=== PATIENT | female | born 1990 | race Two or more races ===

== ENCOUNTER 2021-12-17 08:35 | Inpatient (IN) | payer OTHER ==
[~2021-12-17] VITALS: Ht 165.1 cm; Wt 98.4 kg
[~2021-12-17 08:35] MED LIST: LEVOTHYROXINE25 MCG PO
[2021-12-20] MEDS ORDERED: INTESTINEX680 M1 PO (07:11)
[2021-12-20] MEDS ORDERED: CIPRO500 MG PO (07:11)
[2021-12-20] MEDS ORDERED: METRONIDAZOLE500 MG PO (07:11)
[2021-12-20] MEDS ORDERED: ULTRAM50 MG PO (07:12)
[2021-12-20] MEDS ORDERED: JUVEN PACKET1 EAC1 PO (07:12)
== END 2021-12-20 12:39 | disposition home or self-care (01) | DRG 983 ==
LOC: CIR.AMB 08:35 → SURH 14:56 → O/R 14:56 → SURH 15:17
PROVIDERS: ADMIT Surgery; ATTEND Surgery
PROC: 0JXB0ZZ Transfer Perineum Subcutaneous Tissue and Fascia, Open Approach (ICD-10-PCS; principal; 2021-12-17 09:15)
DX: N82.3 Fistula of vagina to large intestine (principal); Z20.822 Contact with and (suspected) exposure to COVID-19

== ENCOUNTER 2021-12-24 14:01 | Inpatient (IN) | payer OTHER ==
[~2021-12-24] VITALS: Ht 165.1 cm; Wt 95.3 kg
[~2021-12-24 14:01] MED LIST changes: +CIPRO500 MG PO; +INTESTINEX680 M1 PO; +JUVEN PACKET1 EAC1 PO; +METRONIDAZOLE500 MG PO; +ULTRAM50 MG PO
--- NOTE | 2021-12-24 14:15 | NUR ---
SE RECIBE APCIENTE FEMENINA ALERTA Y ORIENTADA EN L[place]OO[place] ESFERAS LA CUAL REFIERE FUE OPERADA EL LUNES PASADO POR DRA CLEOPATRA HOLLY DE FISTULA RECTOVAGINAL Y COMENZO A DINO ESCRETA EN EL AREA VAGINAL. SE UBICA PACIENTE EN OBSERVACION.
--- NOTE | 2021-12-24 14:44 | NUR ---
PT EVALUADO POR QUIEN ORDENA TX MEDICO. RN ESTRADA EDUCA A PT SOBRE EL MISMO QUIEN REFIERE ENTENDER. RN ESTRADA EJECUTA ORDENES BAJO MEDIDAS ACEPTICAS. PT EN FRANCOISE PENDIENTE A RESULTADOS DE LAB.
--- NOTE | 2021-12-24 17:22 | NUR ---
SE ORIENTA PTE SOBRE TX MEDICO EL CUAL REFIERE ENTENDER.SE LE ADMINISTRAN MEDICAMENTOS LUNA ORDEN MEDICA,PENDIENTE A EVALUACION DE DRA QUIROS.
[2022-01-02] MEDS ORDERED: JUVEN PACKET1 EAC1 PO (10:08)
[2022-01-02] MEDS ORDERED: METRONIDAZOLE500 MG PO (10:08)
[2022-01-02] MEDS ORDERED: CIPRO500 MG PO (10:08)
[2022-01-02] MEDS ORDERED: INTESTINEX680 M1 PO (10:08)
== END 2022-01-02 14:57 | disposition home or self-care (01) | DRG 331 ==
LOC: ER 14:01 → SURH 19:37 → SURG 19:37 → SURH 12-27 12:44
PROVIDERS: ADMIT Surgery; ATTEND Surgery
PROC: 02HV33Z Insertion of Infusion Device into Superior Vena Cava, Percutaneous Approach (ICD-10-PCS; 2021-12-25)
PROC: 3E0436Z Introduction of Nutritional Substance into Central Vein, Percutaneous Approach (ICD-10-PCS; 2021-12-25)
PROC: 0D1B4Z4 Bypass Ileum to Cutaneous, Percutaneous Endoscopic Approach (ICD-10-PCS; principal; 2021-12-28 16:00)
PROC: 3E0T3BZ Introduction of Anesthetic Agent into Peripheral Nerves and Plexi, Percutaneous Approach (ICD-10-PCS; 2022-01-02)
PROC: 0DJD8ZZ Inspection of Lower Intestinal Tract, Via Natural or Artificial Opening Endoscopic (ICD-10-PCS; 2022-01-02)
DX: N82.3 Fistula of vagina to large intestine (principal); G89.18 Other acute postprocedural pain; R19.4 Change in bowel habit; F43.21 Adjustment disorder with depressed mood; E66.8 Other obesity; Z68.34 Body mass index [BMI] 34.0-34.9, adult; Z20.822 Contact with and (suspected) exposure to COVID-19

== ENCOUNTER 2022-10-23 10:00 | Inpatient (IN) | payer OTHER ==
[~2022-10-23] VITALS: Ht 167.6 cm; Wt 95.3 kg
[~2022-10-23 10:00] MED LIST changes: +HIBICLENS118 ML TOP; +KETO10TA2 PO; +NEURONTIN300 MG PO
[2022-11-01] MEDS ORDERED: LEVSIN/SL0.125 MG SL (07:48)
== END 2022-11-01 11:25 | disposition home or self-care (01) | DRG 330 ==
LOC: ADM 10:00 → EDSTATUS 10:00 → O/R 10-28 05:06 → SURG 10-28 10:00 → SURH 10-28 14:07
PROVIDERS: ADMIT Surgery; ATTEND Surgery
PROC: 3E0T3BZ Introduction of Anesthetic Agent into Peripheral Nerves and Plexi, Percutaneous Approach (ICD-10-PCS; 2022-10-28)
PROC: 0DQB4ZZ Repair Ileum, Percutaneous Endoscopic Approach (ICD-10-PCS; principal; 2022-10-28 12:45)
DX: Z43.2 Encounter for attention to ileostomy (principal); N82.3 Fistula of vagina to large intestine